=== PATIENT | female | born 1990 | race African-American/Black ===

== ENCOUNTER 2016-05-23 15:03 | Outpatient (CLI) | payer OTHER ==
[~2016-05-23] VITALS: Ht 160 cm; Wt 68.5 kg
[2016-05-23 15:05] VITALS: Ht 160 cm; Wt 68.5 kg
[2016-05-23 15:16] VITALS: BP 104/69; PULSE 88; RESP 18
[2016-05-23] MEDS ORDERED: PRENAT PO (15:19)
[2016-05-23] MEDS ORDERED: NITR100C73 PO (15:19)
[2016-05-23 16:09] LABS: ADD UMIC YES; URINE BILIRUBIN (Dip) NEGATIVE (NEGATIVE); URINE BLOOD (Dip) 2+ (NEGATIVE); URINE COLOR YELLOW (YELLOW); URINE GLUCOSE (Dip) NEGATIVE (NEGATIVE); URINE KETONES (Dip) NEGATIVE (NEGATIVE); URINE LEUKOCYTE ESTERASE (Dip) TRACE (NEGATIVE); URINE NITRITE (Dip) NEGATIVE (NEGATIVE); URINE TOTAL PROTEIN (Dip) NEGATIVE (NEGATIVE); URINE UROBILINOGEN (Dip) 0.2 E.U./dL (0.1-1.0)
--- NOTE | 2016-05-23 16:25 | RADRPT ---
PROCEDURE: Limited obstetric ultrasound CLINICAL INDICATION: Vaginal spotting TECHNIQUE: Multiple transverse and longitudinal grayscale images of the pelvis were obtained white sabdominally and transvaginally.. COMPARISON: same day FINDINGS: The cervix is closed with a length of 3.3 cm. There is a single viable intrauterine gestation. Cardiac activity is present with 146 beats per min vahid. There is a vertex presentation. The placenta is posterior. There is no evidence for an abruption or placenta previa. RPTAT: AA IMPRESSION: Cervix length measures 3.3 cm. .Humphrey Salcedo MD, Date Time Electronically viewed and signed by .Humphrey Salcedo MD, on 05/23/2016 16:25 .S/
[2016-05-23 17:03] LABS: BACTERIA,URINE FEW; MUCUS,URINE MODERATE; SQUAMOUS EPITHELIAL CELL,UR MODERATE
--- NOTE | 2016-05-23 17:41 | TRIAGE ---
OB Triage Datetime Report Generated by CPN: 05/23/2016 17:41 Datetime: 05/23/2016 16:55 Labor Evaluation Monitor Mode: External Resting Tone [place]: Relaxed Heart Rate FHR Baseline Rate: 150 Monitor Mode: External US FHR Baseline Changes: No Baseline Change Variability: Minimal - Undetectable to <=5 bpm Accelerations: 10X10 Decelerations: None Category: Category I Comments: Appropriate for GA Pain Assessment Pain Scale: 2 Pain Presence: Intermittent Pain Type: Contraction; Pressure Pain Location: Abdomen; Back Pain Goal: 0 Pain Relief Measures: Comfort Measures Datetime: 05/23/2016 15:55 Labor Evaluation Monitor Mode: External Resting Tone [place]: Relaxed Heart Rate FHR Baseline Rate: 150 Monitor Mode: External US FHR Baseline Changes: No Baseline Change Variability: Moderate 6-25 bpm Accelerations: 15X15 Decelerations: None Category: Category I Comments: Appropriate for Gestational Age Pain Assessment Pain Scale: 2 Pain Presence: Intermittent Pain Type: Ache Pain Location: Back Pain Goal: 0 Pain Relief Measures: Comfort Measures Datetime: 05/23/2016 15:15 EGA: 28.2 Datetime: 05/23/2016 15:13 Time of Arrival: 05/23/2016 15:01 Arrived By: Wheelchair Arrived From: Emergency Dept Chief Complaint: Spotting Movement: Present Contractions: Denies/Absent Rupture of Membranes: Denies Vaginal Discharge: Present Recent Sexual Intercouse: Denies Abdominal Trauma: Not Applicable Patient Complaints: Other Time Provider Notified: 05/23/2016 15:29 Provider Notified: Kaylyn Initial Plan: NST, UA, OB US for CL and placenta position Datetime: 05/23/2016 15:12 Assessment Type: Triage Maternal Assessment Level of Consciousness: Fully Conscious DTR's/Clonus: DTRs 2+; No Clonus Headache: Denies Blurred Vision: No Respiratory Effort: Unlabored; Regular Rhythm; Equal Expansion Breath Sounds, Left: Clear and Equal Breath Sounds, Right: Clear and Equal Nausea/Vomiting: Denies RUQ Epigastric Pain: Denies Lower Extremities Edema: None Degree: None Upper Extremities Edema: None Degree: None Facial Edema: None Fall Risk Assessment History of Falling: (0) No Secondary Diagnosis: (0) No Ambulatory Aid: (0) Bedrest/Nurse Assist IV Therapy: (0) No Gait: (0) Normal/Bedrest/Immobile Mental Status: (0) Oriented to Own Ability Fall Score: 0 Fall Risk Score Definition: No Risk: No action required Datetime: 05/23/2016 15:09 Stage of : OB Triage
--- NOTE | 2016-05-23 18:06 | PN ---
DATE: 05/23/2016 The patient is a 25-year-old with a 26 week who is spotting, no vaginal bleeding. w ithin normal limits. UA shows 2+ blood, probable UTI. The patient is already on Macrobid. ASSESSMENT AND PLAN: A 25-year-old with 26 week with urinary tract infection. The patien t should finish her Macrobid but follow up with within 1 to 2 days. Dictated By: DAGOBERTO AVILA MD /NTS Conf#: [id number] DID#: [id number]
== END 2016-05-23 17:40 | disposition home or self-care (01) ==
LOC: OBT 15:03 → L-D 15:05 → OBT 17:40
DX: O26.852 Spotting complicating pregnancy, second trimester (principal); O23.42 Unspecified infection of urinary tract in pregnancy, second trimester; Z3A.26 26 weeks gestation of pregnancy
CPT/HCPCS: 76815; 76817; 81001; Z7500; 81003; G0463

== ENCOUNTER 2016-08-13 14:11 | Inpatient (IN) | payer OTHER ==
[~2016-08-13] VITALS: Ht 160 cm; Wt 73.6 kg
[~2016-08-13 14:11] MED LIST: NITR100C73 PO; PRENAT PO
[2016-08-13 16:53] VITALS: Ht 160 cm; Wt 73.6 kg
[2016-08-13 16:58] VITALS: BP 127/76; PULSE 111
[2016-08-13] MEDS ORDERED: IBUPROFEN 600 MG TAB PO PRN (17:00)
[2016-08-13] MEDS ORDERED: MISOPROSTOL 200 MCG TAB PR PRN (17:00)
[2016-08-13] MEDS ORDERED: BUTORPHANOL 2 MG INJ IV PRN ×2 (17:00)
[2016-08-13] MEDS ORDERED: LIDOCAINE 1% (MPF) 30 ML INJ INJ PRN (17:00)
[2016-08-13] MEDS ORDERED: ACETAMINOPHEN/CODEINE #3 TAB PO PRN (17:00)
[2016-08-13] MEDS ORDERED: METHYLERGONOVINE 0.2 MG INJ IM PRN (17:00)
[2016-08-13] MEDS ORDERED: OXYTOCIN 30 UNITS/LR 500 ML IV SCH ×2 (17:00)
[2016-08-13] MEDS ORDERED: OXYTOCIN 30 UNITS/LR 500 ML IV PRN (17:00)
[2016-08-13] MEDS ORDERED: CARBOPROST 250 MCG INJ IM PRN (17:00)
[2016-08-13] MEDS: LACTATED RINGER'S 1,000 ML IV SCH (17:02)
[2016-08-13 17:03] LABS: ADD SCAN DIFF NO
[2016-08-13 17:05] LABS: BASOPHILS % 0.1 % (0.0-2.0); EOSINOPHILS # 0.1 10^3/ul (0.0-0.5); EOSINOPHILS % 1.1 % (0.0-7.0); HEMATOCRIT 28.4 % (37.0-47.0); HEMOGLOBIN 9.6 g/dl (12.0-16.0); LYMPHOCYTES # 2.2 10^3/ul (0.8-2.9); LYMPHOCYTES % 19.2 % (15.0-51.0); MEAN CORPUSCULAR HEMOGLOBIN 30.4 pg (29.0-33.0); MEAN CORPUSCULAR HGB CONC 33.8 g/dl (32.0-37.0); MEAN CORPUSCULAR VOLUME 89.9 fl (82.0-101.0); MEAN PLATELET VOLUME 9.4 fl (7.4-10.4); MONOCYTE # 0.8 10^3/ul (0.3-0.9); MONOCYTES % 7.2 % (0.0-11.0); NEUTROPHIL # 8.3 10^3/ul (1.6-7.5); NEUTROPHILS % 71.8 % (39.0-77.0); PLATELET COUNT 362 10^3/UL (140-415); RED BLOOD COUNT 3.16 10^6/ul (4.20-5.40); RED CELL DISTRIBUTION WIDTH 13.1 % (11.5-14.5); WHITE BLOOD COUNT 11.6 10^3/ul (4.8-10.8)
[2016-08-13 17:18] LABS: INR 1.08; PT RATIO 1.1
[2016-08-13 17:19] LABS: PARTIAL THROMBOPLASTIN TIME 29.2 Sec (25.0-35.0)
--- NOTE | 2016-08-13 18:03 | RADRPT ---
PROCEDURE: US OB CLINICAL INDICATION: macrosomia TECHNIQUE: Multiple sonographic images of the pelvis were obtained. The images were reviewed on a PACS workstation. COMPARISON: None FINDINGS: The cervix is not well visualized. There is a single viable intrauterine gestation. Cardiac activity is present with 148 beats per minute. There is a vertex presentation. The placenta is posterior, fundal, and right lateral in location. There is no evidence for an abrupt ion or placenta previa. There is a normal amount of amniotic fluid with an ANIKET = 14.4 cm. Measurements were made in order to determine age. The results are as follows (cm): BPD =9.17 HC =32.85 AC =37.11 FL =7.37 Estimated gestational age by ultrasound of approximately 38 weeks, 2 days. The estimated date of delivery by ultrasound is 08/25/2016. Reported gestational age by LMP of approximately 40 weeks, 0 days. The reported date of delivery by LMP is 08/13/2016. EFW = 3781 grams (63rd percentile) IMPRESSION: Single viable intrauterine gestation of approximately 38 weeks, 2 days . The estimated date of delivery is 08/25/2016 . Dating by ultrasound is within 12 days of dating by LMP. Normal ANIKET. Estimated weight is 3781 g which is in the 63rd percentile. Cephalic presentation. RPTAT: EE Physician Mal Date Time Electronically viewed and signed by Physician aMl on 08/13/2016 18:03 RA/
[2016-08-13 18:49] LABS: BARBITURATES Negative (NEGATIVE); BENZODIAZEPINES Negative (NEGATIVE); CANNABINOIDS Negative (NEGATIVE); COCAINE Negative (NEGATIVE); OPIATES Negative (NEGATIVE)
[2016-08-13] MEDS ORDERED: MISOPROSTOL 25 MCG CAPSULE PO ONE (19:08)
--- NOTE | 2016-08-13 20:33 | HP ---
Date/Time of Note Date/Time of Note DATE: 08/13/16 TIME: 20:30 OB - History Hx of Present Chief Complaint: induction of labor Estimated Due Date: Aug 13, 2016 : 5 Para: 1 Spontaneous : 1 Therapeutic : 2 Care: Good Care Ultrasounds: Normal mid trimester US Obstetrical Complications: None Medical Complications: None Past Family/Social History * Past Medical, Surgical, Family and Obstetric Histories reviewed from chart. GBS Status: Negative OB Admission Exam Vital Signs Vital Signs Vital Signs Date Time Temp Pulse Resp B/P Pulse Ox O2 Delivery O2 Flow Rate FiO2 08/13/16 16:58 98.8 111 127/76 Room Air Physical Exam HEENT: WNL Heart: Rhythm Normal Lungs: Clear Abdomen: WNL Extremities: Normal Reflexes: Normal Cervical Dilatation: 1cm Effacement: 50% Station: -1 Membranes: Intact Heart Rate: 140's Accelerations: Accelerations Present Decelerations: No Decelerations Varibility: Moderate Last 72 hours Lab Results CBC & BMP 08/13/16 16:45 OB Assessment/Plan Reason for admission: induction of labor Plan: Induction Induction Method: per Misoprostol Protocol ANGEL VITALE MD Aug 13, 2016 20:33
[2016-08-13] MEDS: MISOPROSTOL 25 MCG CAPSULE VAG SCH (23:06)
[2016-08-13] MEDS ORDERED: LACTATED RINGER'S 1,000 ML IV PRN (23:55)
[2016-08-14] MEDS: LACTATED RINGER'S 1,000 ML IV SCH ×4 (00:07→18:15)
[2016-08-14] MEDS: MISOPROSTOL 25 MCG CAPSULE VAG SCH ×4 (01:00→13:00)
[2016-08-14] MEDS ORDERED: OXYTOCIN 30 UNITS/LR 500 ML IV SCH (09:30)
[2016-08-14] MEDS ORDERED: FENTAnyl 2MCG/ML-ROPIV 0.2% 100 ML ONE (17:46)
[2016-08-14] MEDS ORDERED: DIPHENHYDRAMINE 50 MG INJ IV PRN (18:30)
[2016-08-14] MEDS ORDERED: FENTAnyl 2MCG/ML-ROPIV 0.2% 100 ML BAG EPI SCH (18:30)
[2016-08-14] MEDS ORDERED: HYDROmorphONE 1 MG/ML SYG IV PRN ×2 (18:30)
[2016-08-14] MEDS ORDERED: NALOXONE (0.4 MG/ML) INJ IV PRN (18:30)
[2016-08-14] MEDS ORDERED: ONDANSETRON 4 MG INJ IV PRN (18:30)
--- NOTE | 2016-08-14 19:52 | LDN ---
Date/Time of Note Date/Time of Note DATE: 08/14/16 TIME: 19:50 Delivery Summary Weeks of Gestation 40 weeks and 1 day Placenta Delivered: Spontaneously Meconium: none Episiotomy: No Perineal laceration: 0 Anesthesia type: Epidural Estimated blood loss: 200 Sponge & Needle done & correct: Yes All needle counts correct: Yes Any foreign bodies felt in the: No (Please specify) Problems: Infant Delivery Information Sex Sex: female Apgars 1 Minute: 9 5 Minute: 9 Suctioning Nose & mouth suctioned at scott: Yes Delee suction performed: No Umbilical Cord Umbilical cord with: 3 Vessels Cord presentations: no nuchal cord Cord Blood was obtained: Yes Mother & Baby Disposition Disposition Mom & Baby to Maternity; Good: Yes ANGEL VITALE MD Aug 14, 2016 19:52
[2016-08-14 21:25] VITALS: BP 121/74; PULSE 67; RESP 19
[2016-08-14] MEDS ORDERED: MISOPROSTOL 200 MCG TAB PR PRN (22:00)
[2016-08-14] MEDS ORDERED: WITCH HAZEL/GLYCERIN PAD PR PRN (22:00)
[2016-08-14] MEDS ORDERED: CARBOPROST 250 MCG INJ IM PRN (22:00)
[2016-08-14] MEDS ORDERED: OXYTOCIN 30 UNITS/LR 500 ML IV PRN (22:00)
[2016-08-14] MEDS ORDERED: DIBUCAINE 1% 30 GM OINT PR PRN (22:00)
[2016-08-14] MEDS ORDERED: ACETAMINOPHEN 325 MG TAB PO PRN (22:00)
[2016-08-14] MEDS ORDERED: BENZOCAINE 20% 56 ML SPRAY TOP PRN (22:00)
[2016-08-14] MEDS ORDERED: METHYLERGONOVINE 0.2 MG INJ IM PRN (22:00)
[2016-08-15] MEDS: LACTATED RINGER'S 1,000 ML IV* SCH ×4 (00:15→21:45)
[2016-08-15 04:30] VITALS: BP 120/59; PULSE 89; RESP 19
[2016-08-15] MEDS: IBUPROFEN 600 MG TAB PO SCH ×4 (05:56→23:51)
[2016-08-15 07:08] LABS: ADD SCAN DIFF NO
[2016-08-15 07:14] LABS: ABNORMAL IP MESSAGE 1; BASOPHILS % 0.2 % (0.0-2.0); EOSINOPHILS # 0.1 10^3/ul (0.0-0.5); EOSINOPHILS % 0.4 % (0.0-7.0); HEMATOCRIT 30.4 % (37.0-47.0); HEMOGLOBIN 9.7 g/dl (12.0-16.0); LYMPHOCYTES # 2.6 10^3/ul (0.8-2.9); LYMPHOCYTES % 13.1 % (15.0-51.0); MEAN CORPUSCULAR HEMOGLOBIN 29.5 pg (29.0-33.0); MEAN CORPUSCULAR HGB CONC 31.9 g/dl (32.0-37.0); MEAN CORPUSCULAR VOLUME 92.4 fl (82.0-101.0); MEAN PLATELET VOLUME 9.6 fl (7.4-10.4); MONOCYTE # 1.5 10^3/ul (0.3-0.9); MONOCYTES % 7.8 % (0.0-11.0); NEUTROPHIL # 15.2 10^3/ul (1.6-7.5); NEUTROPHILS % 77.7 % (39.0-77.0); PLATELET COUNT 337 10^3/UL (140-415); RED BLOOD COUNT 3.29 10^6/ul (4.20-5.40); RED CELL DISTRIBUTION WIDTH 13.5 % (11.5-14.5); WHITE BLOOD COUNT 19.5 10^3/ul (4.8-10.8)
[2016-08-15 08:10] VITALS: BP 109/66; PULSE 95; RESP 16
[2016-08-15] MEDS: SENNA/DOCUSATE NA (8.6MG/50MG) TAB PO SCH ×2 (09:37→21:00)
[2016-08-15] MEDS ORDERED: LANOLIN 7 GM TUBE TOP PRN (11:00)
[2016-08-15 12:10] VITALS: BP 102/60; PULSE 88; RESP 18
--- NOTE | 2016-08-15 13:51 | QN ---
Documentation Comment No complaint Afebrile VSS Fundus firm Lochia scant PPD #1 Stable continue with present care. ANGEL VITALE MD Aug 15, 2016 13:51
[2016-08-15 16:11] VITALS: BP 121/80; PULSE 89; RESP 18
[2016-08-15] MEDS ORDERED: ACETAMINOPHEN/CODEINE #3 TAB PO PRN (18:30)
[2016-08-15 20:30] VITALS: BP 115/77; PULSE 96; RESP 20
[2016-08-16 04:00] VITALS: BP 121/75; PULSE 87; RESP 20
[2016-08-16] MEDS: LACTATED RINGER'S 1,000 ML IV* SCH (05:51)
[2016-08-16] MEDS: IBUPROFEN 600 MG TAB PO SCH ×2 (06:41→11:44)
[2016-08-16 08:21] LABS: ADD SCAN DIFF NO
[2016-08-16 08:26] LABS: BASOPHILS % 0.3 % (0.0-2.0); EOSINOPHILS # 0.2 10^3/ul (0.0-0.5); EOSINOPHILS % 2.2 % (0.0-7.0); HEMATOCRIT 26.7 % (37.0-47.0); HEMOGLOBIN 8.6 g/dl (12.0-16.0); LYMPHOCYTES % 27.6 % (15.0-51.0); MEAN CORPUSCULAR HGB CONC 32.2 g/dl (32.0-37.0); MEAN PLATELET VOLUME 9.7 fl (7.4-10.4); MONOCYTE # 0.7 10^3/ul (0.3-0.9); MONOCYTES % 6.7 % (0.0-11.0); NEUTROPHIL # 6.8 10^3/ul (1.6-7.5); NEUTROPHILS % 62.8 % (39.0-77.0); PLATELET COUNT 335 10^3/UL (140-415); RED BLOOD COUNT 2.87 10^6/ul (4.20-5.40); RED CELL DISTRIBUTION WIDTH 13.5 % (11.5-14.5); WHITE BLOOD COUNT 10.8 10^3/ul (4.8-10.8)
[2016-08-16 08:30] VITALS: BP 116/85; PULSE 73; RESP 20
[2016-08-16] MEDS: SENNA/DOCUSATE NA (8.6MG/50MG) TAB PO SCH (09:00)
[2016-08-16] MEDS ORDERED: DIPHTH/TET/ACEL PERTUSS (ADULT) 0.5 ML VIAL IM* ONE (09:00)
--- NOTE | 2016-08-16 12:03 | DS ---
Date/Time of Note Date/Time of Note DATE: 08/16/16 TIME: 12:02 Obstetrical Discharge Record Final Diagnosis Final Diagnosis: Term delivered Vaginal Delivery Obstetrical Delivery: Spontaneous Complications Induction: Yes Condition on Discharge Physical Assessment Voiding: Yes Bowel Movement: Yes Breast: Soft, non-tender Fundus: Firm Calf Tenderness: No Patient Condition: Stable ANGEL VITALE MD Aug 16, 2016 12:03
== END 2016-08-16 16:40 | disposition home or self-care (01) | DRG 775 ==
LOC: EDSTATUS 14:11 → L-D 16:25 → PP1 08-14 21:21
PROVIDERS: ADMIT Obstetrics & Gynecology; ATTEND Obstetrics & Gynecology
PROC: 10E0XZZ Delivery of Products of Conception, External Approach (ICD-10-PCS; principal; 2016-08-14)
DX: O48.0 Post-term pregnancy (principal); Z37.0 Single live birth; Z3A.40 40 weeks gestation of pregnancy
CPT/HCPCS: 62319; 76815; 80307; 85025; 85610; 85730; 86592; 86900; 86901; 87086; 87340; 90715; J2590; J3010; J7120

== ENCOUNTER 2018-01-22 18:41 | Emergency (ER) | END 2018-01-22 21:13 | disposition home or self-care (01) ==